=== PATIENT | female | born 1995 | race Caucasian/White ===

== ENCOUNTER 2018-06-11 14:16 | Emergency (ER) | payer SELFPAY ==
[2018-06-11 14:40] LABS: #Basophils 0.1 thou/uL (0.0-0.2); #Eosinphils 0.1 thou/uL (0.0-0.7); #Lymphocytes 2.7 thou/uL (1.20-3.40); #Monocytes 0.7 thou/uL (0.11-0.59); #Neutrophils 6.1 thou/uL (1.40-6.50); %Basophils 0.9 % (0.0-1.0); %Eosinophils 1.3 % (0.0-10.0); %Lymphocytes 27.7 % (21.0-51.0); %Monocytes 7.5 % (0.0-10.0); %Neutrophils 62.7 % (42.0-75.0); Hemoglobin 15.1 g/dL (12.0-16.0); Mean Corpuscular HGB CONC 32.2 g/dL (32.0-36.0); Mean Corpuscular Hemoglobin 28.9 pg (27.0-31.0); Mean Corpuscular Volume 89.8 fL (78.0-98.0); Mean Platelet Volume 11.3 fL (7.4-10.4); Platelet Count 206 thou/uL (130-400); RBC Distribution Width 11.9 % (11.5-14.5); Red Blood Cell (RBC) Count 5.23 mill/uL (4.20-5.40); White Blood Cell (WBC) Count 9.7 thou/uL (4.8-10.8)
--- NOTE | 2018-06-11 14:46 | RAD ---
PORTABLE CHEST: Date: 06/11/18 HISTORY: Mid sternal chest pain. COMPARISON: 10/27/15 study. FINDINGS: Heart size and mediastinum are within normal limits. Lungs are clear of infiltrates. No signs of fail ure. IMPRESSION: No active intrathoracic disease. POS: [facility]
[2018-06-11 14:58] LABS: ALT (SGPT) 28 U/L (8-55); AST (SGOT) 22 U/L (5-34); Albumin 4.6 g/dL (3.5-5.0); Alkaline Phosphatase 118 U/L (40-150); Anion Gap 12 mmol/L (10-20); BUN (Urea Nitrogen) 10 mg/dL (7.0-18.7); Bilirubin, Total 1.4 mg/dL (0.2-1.2); Calc. Creatinine Clearance 0 mL/min (70-130); Carbon Dioxide 29 mmol/L (22-29); Chloride 102 mmol/L (98-107); Estimated GFR-MDRD Greater than 90; Glucose 97 mg/dL (70-105); Potassium 4.4 mmol/L (3.5-5.1); Protein, Total 7.6 g/dL (6.0-8.3); Sodium 139 mmol/L (136-145)
--- NOTE | 2018-06-11 16:32 | ULT ---
Exam: Right upper quadrant ultrasound: HISTORY: Chest abdomen and back pain. COMPARISON: 05/04/2014 FINDINGS: Visualized liver:Liver is enlarged measuring 20.2 cm in craniocaudal dimensions. The liver also demon strates mild heterogeneity and increased echogenicity, likely attributable to diffuse fatty infiltration. This does limit evaluation of the hepatic parenchyma, but no definite focal hepatic les ion is seen. Gallbladder:Multiple shadowing echogenic foci are seen in gallbladder lumen compatible with gallbladd er calculi. Gallbladder calculi were not seen on the prior study in 2014. No gallbladder wall thickening or pericholecystic fluid is appreciated. 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 Common bile duct: The common duct measures0.6 cm in diameter which is at the upper limits of normal i n size. No intrahepatic biliary ductal dilatation is appreciated.. The limited visualized portions of the pancreas demonstrate a normal sonographic appearance. A kidney in the region of the right renal fossa is not visualized. However, the prior right upper arianna drant ultrasound on 05/04/2014 noted that right kidney was to the left of midline. The left upper quadrant was not imaged on this exam. IMPRESSION: 1. Hepatomegaly with fatty infiltration. 2. Cholelithiasis. No gallbladder wall thickening or pericholecystic fluid is seen, but ultrasonograp her does note a positive sonographic Amato's sign. Common duct is at the upper limits of normal in diameter measuring 0.6 cm.
== END 2018-06-11 17:10 | disposition home or self-care (01) ==
LOC: ERS 14:16
DX: K80.20 Calculus of gallbladder without cholecystitis without obstruction (principal); I10 Essential (primary) hypertension; F31.9 Bipolar disorder, unspecified; F17.220 Nicotine dependence, chewing tobacco, uncomplicated
CPT/HCPCS: 36415; 71045; 76705; 80053; 83690; 84484; 85025; 93005

== ENCOUNTER 2019-03-08 20:03 | Emergency (ER) | payer OTHER, SELFPAY ==
[2019-03-08] MEDS ORDERED: Ketorolac Tromethamine 60 MG/2 ML VIAL ONE (21:15)
[2019-03-08 21:16] LABS: Pregu Control Background? CLEAR/WHITE (CLR/WHITE); Pregu Control Bar Appear? YES (CONTROL BAR); Specific Gravity 1.019 (1.002-1.036)
[2019-03-08 21:17] LABS: Pregnancy Test - Urine (BHCG) Negative (Negative)
--- NOTE | 2019-03-08 21:36 | RAD ---
Left forearm 2 views HISTORY: Left arm injury. FINDINGS: Radius and ulna are intact. No displaced fracture evident. IMPRESSION: Normal exam.
== END 2019-03-08 22:07 | disposition home or self-care (01) ==
LOC: ERS 20:03
DX: S16.1XXA Strain of muscle, fascia and tendon at neck level, initial encounter (principal); S50.12XA Contusion of left forearm, initial encounter; I10 Essential (primary) hypertension; F41.9 Anxiety disorder, unspecified; F31.9 Bipolar disorder, unspecified; F17.220 Nicotine dependence, chewing tobacco, uncomplicated; V89.2XXA Person injured in unspecified motor-vehicle accident, traffic, initial encounter
CPT/HCPCS: 81025; 96372; 99406; J1885; L0120